=== PATIENT | female | born 1950 | race Native Hawaiian/Other Pacific Islander ===

== ENCOUNTER 2019-12-05 10:22 | Outpatient (CLI) | payer OTHER | END 2019-12-05 19:26 | disposition home or self-care (01) | LOC: MRI 10:22 | DX: M47.814 Spondylosis without myelopathy or radiculopathy, thoracic region (principal); M54.6 Pain in thoracic spine ==

== ENCOUNTER 2020-10-03 10:09 | Outpatient (CLI) | payer OTHER | END 2020-10-03 19:09 | disposition home or self-care (01) | LOC: RAD 10:09 | DX: M54.81 Occipital neuralgia (principal); M54.2 Cervicalgia ==